=== PATIENT | male | born 1955 | race Caucasian/White ===

== ENCOUNTER 2021-07-05 08:24 | Outpatient (CLI) | payer MEDICARE ==
[2021-07-06 11:19] LABS: SARS-CoV-2 PCR by NAA Not Detected (NotDetected)
== END 2021-07-05 08:25 | disposition home or self-care (01) ==
LOC: CSHLAB 08:24
PROVIDERS: ATTEND Family Medicine
DX: Z20.822 Contact with and (suspected) exposure to COVID-19 (principal); Z86.16 Personal history of COVID-19; J45.40 Moderate persistent asthma, uncomplicated
CPT/HCPCS: U0003; U0005

== ENCOUNTER 2021-07-10 07:34 | Outpatient (CLI) | payer MEDICARE | END 2021-07-10 07:35 | disposition home or self-care (01) | LOC: CSHCP 07:34 | PROVIDERS: ATTEND Family Medicine | DX: J45.40 Moderate persistent asthma, uncomplicated (principal) | CPT/HCPCS: 94010; 94726; 94729; 94760 ==

== ENCOUNTER → 2022-08-07 | Day surgery (SDC) | payer MEDICARE ==
[~2022-08-07] MED LIST: Adenosine 6 MG/2 ML VIAL ONE; Fentanyl 100 MCG/2 ML VIAL ONE; Heparin 10,000 UNITS/ 10 ML VIAL ONE; Iopamidol 300 61% 100 ML VIAL FS ONE; Iopamidol 300 61% 50 ML VIAL FS ONE; Lidocaine 1% (PF) 30 ML VIAL ONE; Lidocaine 1% MPF 2 ML VIAL ONE; Midazolam HCl 2 mg/2 ml Vial ONE; Nitroglycerin 50 MG/250 ML BOT 0 ML ONE; Sodium Chloride 0.9% 1,000 ML ONE; Verapamil 5 MG/2 ML VIAL ONE
[2022-08-07 07:13] LABS: #Basophils 0.1 10x3/uL (0.0-0.2); #Eosinphils 0.5 10x3/uL (0.0-0.5); #Monocytes 0.7 10x3/uL (0.0-1.1); %Eosinophils 8.8 % (0.0-6.0); %Lymphocytes 27.7 % (18.0-47.0); %Monocytes 11.3 % (0.0-10.0); %Neutrophils 50.9 % (40.0-75.0); Hemoglobin 14.1 g/dL (13.5-17.5); Mean Corpuscular HGB CONC 34.3 g/dL (32.0-36.0); Mean Corpuscular Hemoglobin 33.3 pg (27.0-33.0); Mean Corpuscular Volume 96.9 fl (81.2-95.1); Mean Platelet Volume 9.3 fl (7.4-10.4); Platelet Count 220 10x3/uL (150-450); Red Blood Cell (RBC) Count 4.24 10x6/uL (4.32-5.72); White Blood Cell (WBC) Count 5.9 10x3/uL (3.5-10.5)
[2022-08-07 07:28] LABS: Anion Gap 12 mmol/L (10-20); BUN (Urea Nitrogen) 20 mg/dL (8.4-25.7); Calc. Creatinine Clearance 0 mL/min (70-130); Calcium 9.8 mg/dL (7.8-10.44); Carbon Dioxide 25 mmol/L (23-31); Chloride 107 mmol/L (98-107); Estimated GFR 68; Glucose 122 mg/dL (80-115); Potassium 4.2 mmol/L (3.5-5.1); Sodium 140 mmol/L (136-145)
[2022-08-07 07:32] LABS: INR-International Normal Ratio 1.1; PTT 25.3 sec (22.0-33.0); Prothrombin Time 11.5 sec (9.5-12.1)
[2022-08-07 07:36] VITALS: BMI 41.5
== END ==
LOC: CSHCCL 06:18
PROVIDERS: ATTEND Specialist
DX: T82.855A Stenosis of coronary artery stent, initial encounter (principal); I25.10 Atherosclerotic heart disease of native coronary artery without angina pectoris; R94.30 Abnormal result of cardiovascular function study, unspecified; R07.2 Precordial pain; I10 Essential (primary) hypertension; E78.2 Mixed hyperlipidemia; I65.23 Occlusion and stenosis of bilateral carotid arteries; E66.9 Obesity, unspecified; Z86.16 Personal history of COVID-19; E11.9 Type 2 diabetes mellitus without complications; Z68.41 Body mass index [BMI] 40.0-44.9, adult; Z79.82 Long term (current) use of aspirin; Z79.02 Long term (current) use of antithrombotics/antiplatelets; Z79.899 Other long term (current) drug therapy; Z79.51 Long term (current) use of inhaled steroids
CPT/HCPCS: 71045; 80048; 85025; 85610; 85730; 93005; 93010; 93455; 99152; 99153; C1760; C1769; C1894; J0153; J1644; J2001; J2250; J3010; J7050; Q9967

== ENCOUNTER 2023-09-13 06:34 | Day surgery (SDC) | payer MEDICARE ==
[2023-09-13 07:13] LABS: #Basophils 0.1 10x3/uL (0.0-0.2); #Eosinphils 0.4 10x3/uL (0.0-0.5); #Monocytes 0.7 10x3/uL (0.0-1.1); %Basophils 1.1 % (0.0-2.0); %Eosinophils 6.1 % (0.0-6.0); %Lymphocytes 21.5 % (18.0-47.0); %Monocytes 10.3 % (0.0-10.0); %Neutrophils 60.5 % (40.0-75.0); Hematocrit 41.2 % (38.8-50.0); Hemoglobin 14.1 g/dL (13.5-17.5); Mean Corpuscular HGB CONC 34.2 g/dL (32.0-36.0); Mean Corpuscular Hemoglobin 32.7 pg (27.0-33.0); Mean Corpuscular Volume 95.6 fl (81.2-95.1); Mean Platelet Volume 9.5 fl (7.4-10.4); Platelet Count 193 10x3/uL (150-450); RBC Distribution Width 14.2 % (11.5-14.5); Red Blood Cell (RBC) Count 4.31 10x6/uL (4.32-5.72); White Blood Cell (WBC) Count 6.6 10x3/uL (3.5-10.5)
[2023-09-13 07:32] LABS: Anion Gap 16 mmol/L (10-20); BUN (Urea Nitrogen) 22 mg/dL (8.4-25.7); Calc. Creatinine Clearance 0 mL/min (70-130); Calcium 9.5 mg/dL (7.8-10.44); Carbon Dioxide 19 mmol/L (23-31); Chloride 106 mmol/L (98-107); Estimated GFR 69; Glucose 131 mg/dL (80-115); Potassium 4.1 mmol/L (3.5-5.1); Sodium 137 mmol/L (136-145)
[2023-09-13 07:37] VITALS: BP 108/60; TEMP 97.2
[2023-09-13] MEDS ORDERED: Heparin 10,000 UNITS/ 10 ML VIAL ONE ×2 (07:42→08:54)
[2023-09-13] MEDS ORDERED: Lidocaine 1% (PF) 30 ML VIAL ONE (07:42)
[2023-09-13] MEDS ORDERED: Adenosine 6 mg (2 mL) VIAL ONE (07:42)
[2023-09-13 07:45] LABS: Prothrombin Time 11.2 sec (9.5-12.1)
[2023-09-13] MEDS ORDERED: Nitroglycerin 50 MG/250 ML BOT 0 ML ONE (07:47)
[2023-09-13] MEDS ORDERED: Midazolam HCl 2 mg/2 ml Vial ONE (08:17)
[2023-09-13] MEDS ORDERED: fentaNYL 50 mcg/mL 1 mL Vial ONE (08:17)
[2023-09-13] MEDS ORDERED: Iopamidol 300 61% 100 ML VIAL FS ONE (08:56)
== END 2023-09-13 13:18 | disposition home or self-care (01) ==
LOC: CSHSDC 06:34
PROVIDERS: ATTEND Specialist
PROC: 4A023N7 Measurement of Cardiac Sampling and Pressure, Left Heart, Percutaneous Approach (ICD-10-PCS; principal; 2023-09-13)
PROC: B202YZZ Plain Radiography of Single Coronary Artery Bypass Graft using Other Contrast (ICD-10-PCS; 2023-09-13)
DX: I25.119 Atherosclerotic heart disease of native coronary artery with unspecified angina pectoris (principal); I65.23 Occlusion and stenosis of bilateral carotid arteries; I45.10 Unspecified right bundle-branch block; R94.39 Abnormal result of other cardiovascular function study; E11.9 Type 2 diabetes mellitus without complications; I10 Essential (primary) hypertension; E78.2 Mixed hyperlipidemia; E66.9 Obesity, unspecified; Z86.16 Personal history of COVID-19; Z96.649 Presence of unspecified artificial hip joint; Z79.82 Long term (current) use of aspirin; Z79.899 Other long term (current) drug therapy; Z95.5 Presence of coronary angioplasty implant and graft; Z95.1 Presence of aortocoronary bypass graft
CPT/HCPCS: 80048; 85025; 85610; 85730; 93459; C1725; C1760; C1769 ×2; C1874 ×3; C1887 ×3; C1894; C9604; J3010; 92937; 93005; 93010; 99152; 99153; J0153; J1644; J2001; J2250; Q9967

== ENCOUNTER 2023-12-25 14:34 | Emergency (ER) | payer MEDICARE ==
[~2023-12-25 14:34] MED LIST changes: -Adenosine 6 MG/2 ML VIAL ONE; -Fentanyl 100 MCG/2 ML VIAL ONE; -Heparin 10,000 UNITS/ 10 ML VIAL ONE; -Iopamidol 300 61% 100 ML VIAL FS ONE; -Iopamidol 300 61% 50 ML VIAL FS ONE; +Iopamidol 370 76% 100 ML VIAL ONE; -Lidocaine 1% (PF) 30 ML VIAL ONE; -Lidocaine 1% MPF 2 ML VIAL ONE; -Midazolam HCl 2 mg/2 ml Vial ONE; -Nitroglycerin 50 MG/250 ML BOT 0 ML ONE; -Sodium Chloride 0.9% 1,000 ML ONE; -Verapamil 5 MG/2 ML VIAL ONE
[2023-12-25 16:03] LABS: #Basophils 0.06 10x3/uL (0.0-0.2); #Eosinphils 0.23 10x3/uL (0.0-0.5); #Monocytes 0.57 10x3/uL (0.0-1.1); #Neutrophils 5.73 10x3/uL (1.5-8.4); %Basophils 0.8 % (0.0-2.0); %Lymphocytes 13.8 % (18.0-47.0); %Monocytes 7.4 % (0.0-10.0); %Neutrophils 74.5 % (40.0-75.0); Hematocrit 41.7 % (38.8-50.0); Hemoglobin 14.4 g/dL (13.5-17.5); Mean Corpuscular HGB CONC 34.5 g/dL (32.0-36.0); Mean Corpuscular Hemoglobin 33.4 pg (27.0-33.0); Mean Corpuscular Volume 96.8 fL (81.2-95.1); Mean Platelet Volume 9.8 fL (7.4-10.4); Platelet Count 168 10x3/uL (150-450); RBC Distribution Width 13.2 % (11.5-14.5); Red Blood Cell (RBC) Count 4.31 10x6/uL (4.32-5.72); White Blood Cell (WBC) Count 7.7 10x3/uL (3.5-10.5)
[2023-12-25 16:08] LABS: INR-International Normal Ratio 1.2; Prothrombin Time 12.4 sec (9.5-12.1)
[2023-12-25 16:11] LABS: ALT (SGPT) 33 U/L (8-55); AST (SGOT) 36 U/L (5-34); Albumin 3.7 g/dL (3.4-4.8); Alkaline Phosphatase 47 U/L (40-110); Anion Gap 15 mmol/L (10-20); BUN (Urea Nitrogen) 21 mg/dL (8.4-25.7); Bilirubin, Total 0.7 mg/dL (0.2-1.2); CK (CPK) 102 U/L (30-200); Calc. Creatinine Clearance 0 mL/min (70-130); Calcium 9.7 mg/dL (7.8-10.44); Carbon Dioxide 21 mmol/L (23-31); Chloride 106 mmol/L (98-107); Estimated GFR 57; Globulin 3.5 g/dL (2.4-3.5); Glucose 135 mg/dL (80-115); Potassium 4.6 mmol/L (3.5-5.1); Protein, Total 7.2 g/dL (5.8-8.1); Sodium 137 mmol/L (136-145)
[2023-12-25 16:18] LABS: PTT 21.4 sec (22.0-33.0)
[2023-12-25 16:19] LABS: Troponin I Less than 0.010 ng/mL (< 0.028)
[2023-12-25] MEDS ORDERED: Heparin 25,000 units/D5W 500 ML ONE (17:42)
[2023-12-25] MEDS ORDERED: Heparin 10,000 UNITS/ 10 ML VIAL ONE (18:01)
== END 2023-12-25 21:19 | disposition short-term general hospital (02) ==
LOC: CSHERS 14:34
DX: I80.201 Phlebitis and thrombophlebitis of unspecified deep vessels of right lower extremity (principal); I10 Essential (primary) hypertension
CPT/HCPCS: 71045; 75635; 80053; 82550; 83605; 83880; 84484; 85025; 85610; 85730; 93005; 93970; J1644 ×2; 36415; 96365; 96366; Q9967

== ENCOUNTER 2024-03-24 08:57 | Outpatient (CLI) | payer MEDICARE ==
[2024-03-24 10:55] LABS: Hematocrit 36.5 % (38.8-50.0); Hemoglobin 12.3 g/dL (13.5-17.5); Mean Corpuscular HGB CONC 33.7 g/dL (32.0-36.0); Mean Corpuscular Hemoglobin 32.2 pg (27.0-33.0); Mean Corpuscular Volume 95.5 fL (81.2-95.1); Mean Platelet Volume 9.4 fL (7.4-10.4); Platelet Count 243 10x3/uL (150-450); Red Blood Cell (RBC) Count 3.82 10x6/uL (4.32-5.72); White Blood Cell (WBC) Count 5.5 10x3/uL (3.5-10.5)
[2024-03-24 11:11] LABS: INR-International Normal Ratio 1.1; PTT 28.7 sec (22.0-33.0); Prothrombin Time 12.2 sec (9.5-12.1)
[2024-03-24 11:53] LABS: Anion Gap 12 mmol/L (10-20); BUN (Urea Nitrogen) 22 mg/dL (8.4-25.7); Calc. Creatinine Clearance 0 mL/min (70-130); Calcium 9.2 mg/dL (7.8-10.44); Carbon Dioxide 23 mmol/L (23-31); Chloride 107 mmol/L (98-107); Estimated GFR 83; Glucose 158 mg/dL (80-115); Potassium 4.2 mmol/L (3.5-5.1); Sodium 138 mmol/L (136-145)
== END 2024-03-24 08:58 | disposition home or self-care (01) ==
LOC: CSHLAB 08:57
PROVIDERS: ATTEND Specialist
DX: Z01.818 Encounter for other preprocedural examination (principal); I82.409 Acute embolism and thrombosis of unspecified deep veins of unspecified lower extremity
CPT/HCPCS: 80048; 85027; 85610; 85730; 93005; 93010

== ENCOUNTER 2024-08-14 09:57 | Outpatient (CLI) | payer MEDICARE, OTHER | END 2024-08-14 09:58 | disposition home or self-care (01) | LOC: CSHULT 09:57 | PROVIDERS: ATTEND Urology | DX: N20.0 Calculus of kidney (principal); R31.29 Other microscopic hematuria; Z87.440 Personal history of urinary (tract) infections; N35.916 Unspecified urethral stricture, male, overlapping sites; Z98.890 Other specified postprocedural states | CPT/HCPCS: 74018; 76770 ==